=== PATIENT | male | born 1980 | race Two or more races ===

== ENCOUNTER 2019-03-20 09:41 | Emergency (ER) | payer OTHER ==
[~2019-03-20] VITALS: Ht 175.3 cm; Wt 99.8 kg
[2019-03-20 09:47] VITALS: Ht 175.3 cm; Wt 99.8 kg
[2019-03-20 12:10] VITALS: BP 135/89
== END 2019-03-20 13:03 | disposition home or self-care (01) ==
LOC: ED 09:41
DX: R42 Dizziness and giddiness (principal); I10 Essential (primary) hypertension; Z98.890 Other specified postprocedural states
CPT/HCPCS: J8597; Q0162